=== PATIENT | male | born 1965 | race Caucasian/White ===

== ENCOUNTER 2018-02-14 08:45 | Day surgery (SDC) | payer BC ==
[2018-02-12 08:38] VITALS: BMI 28.8
--- NOTE | 2018-02-14 08:35 | P.GSHP ---
History of Present Illness H&P Date: 02/14/18 CHIEF COMPLAINT: Colon screen HISTORY OF PRESENT ILLNESS: The patient is a 52-year-old male who presents for colon screen. Lower endoscopy was offered for further evaluation and management. PAST MEDICAL HISTORY: Please see list. PAST SURGICAL HISTORY: Please see list. MEDICATIONS: Please see list. ALLERGIES: Please see list. SOCIAL HISTORY: No illicit drug use FAMILY HISTORY: No reports of Crohn disease or ulcerative colitis. REVIEW OF ORGAN SYSTEMS: CONSTITUTIONAL: No reports of fevers or chills. PHYSICAL EXAM: VITAL SIGNS: Stable GENERAL: Well-developed pleasant in no acute distress. HEENT: No scleral icterus. Extraocular movements grossly intact. Moist buccal mucosa. NECK: Supple without lymphadenopathy. CHEST: Unlabored respirations. Equal bilateral excursions. CARDIOVASCULAR: Regular rate and rhythm. Distal 2+ pulses. ABDOMEN: Soft, nontender, nondistended. MUSCULOSKELETAL: No clubbing, cyanosis, or edema. ASSESSMENT: 1. Colon screen. PLAN: 1. Recommend proceeding with a lower endoscopy Past Medical History Past Medical History: No Reported History History of Any Multi-Drug Resistant Organisms: None Reported Additional Past Surgical History / Comment(s): Cyst removed from throat at age 12. Cyst removed from lower extrem. Past Anesthesia/Blood Transfusion Reactions: No Reported Reaction Smoking Status: Never smoker - Past Family History Mother Family Medical History: Cancer Additional Family Medical History / Comment(s): Breast, colon Medications and Allergies Home Medications Medication Instructions Recorded Confirmed Type Glucosam/Yaniv-Msm1/C/Jose/Bosw 1 each PO DAILY 02/12/18 02/12/18 History [Glucosamine-Chondroitin Tablet] Multivitamin [Men's Multi-Vitamin] 1 each PO DAILY 02/12/18 02/12/18 History [place]-3 Fatty Acids/Fish Oil [Fish 1 each PO DAILY 02/12/18 02/12/18 History Oil 1,000 mg Softgel] Allergies Allergy/AdvReac Type Severity Reaction Status Date / Time Penicillins Allergy Anaphylaxis Verified 02/12/18 08:26
[~2018-02-14 08:45] MED LIST: LACTATED RINGERS 1,000 ML IV SCH
[2018-02-14 10:42] VITALS: RESP 16; TEMP 96.8
[2018-02-14] MEDS ORDERED: LIDOCAINE 1% INJ 10MG/ML (20 ML MDV) ONE (11:07)
[2018-02-14] MEDS ORDERED: PROPOFOL 10 MG/ML 20 ML VIAL IV ONE (11:07)
--- NOTE | 2018-02-14 11:38 | P.PCN ---
Date of Procedure: 02/14/18 Description of Procedure: PREOPERATIVE DIAGNOSIS: Colonoscopy screening, first Family history colon cancer, mother POSTOPERATIVE DIAGNOSIS: Colonoscopy screening, first Family history colon cancer, mother Rectal adenoma Proximal transverse colon polyp OPERATION: Colonoscopy to the ileocecal valve and appendiceal orifice. Colonoscopy with snare polypectomy Colonoscopy with cold forceps biopsy. SURGEON: Cristina Ortiz MD. ANESTHESIA: MAC. INDICATIONS: The patient is a 52-year-old female who presents for colonoscopy screening. This is his first colonoscopy. Benefits and risks were described and informed consent was obtained. DESCRIPTION OF PROCEDURE: The patient had undergone Gatorade, MiraLAX and Dulcolax prep. He had been brought into the operating room and laid in the left lateral decubitus position. After adequate intravenous sedation, the rectum was examined with 2 % lidocaine jelly. No external hemorrhoids were encountered. The prostate was smooth and without abnormalities. The rectal tone was within normal limits. No lesions were palpated in the rectal vault. An Olympus colonoscope was advanced until the ileocecal valve and appendiceal orifice were clearly viewed. The prep was fair with visualization of the mucosal folds. The scope was removed with visualization of each mucosal fold. No scattered diverticulosis was encountered. A 3 mm hyperplastic polyp was cold forceps biopsy along the proximal transverse colon. A rectal adenoma of 4 mm was snare polypectomy at 10 cm from the anal verge No evidence of focal colitis was found. Retroflexion of the scope demonstrated no internal hemorrhoids. The colon was desufflated. The patient had tolerated the procedure well. Withdrawal time was over 6 minutes. FINDINGS: No internal hemorrhoids No external hemorrhoids No arteriovenous malformations. No scattered diverticulosis was encountered. Removal of 2 polyps: - Snare polypectomy 10 cm from the anal verge, 5 mm tubulovillous adenoma polyp , rectum - Cold forceps biopsy at proximal transverse colon, 3 mm polyp No focal colitis. RECOMMENDATIONS: Repeat colonoscopy in 3 years, 2020 Plan - Discharge Summary New Discharge Prescriptions: No Action [place]-3 Fatty Acids/Fish Oil [Fish Oil 1,000 mg Softgel] 1 each PO DAILY Multivitamin [Men's Multi-Vitamin] 1 each PO DAILY Glucosam/Yaniv-Msm1/C/Jose/Bosw [Glucosamine-Chondroitin Tablet] 1 each PO DAILY Discharge Medication List Glucosam/Yaniv-Msm1/C/Jose/Bosw [Glucosamine-Chondroitin Tablet] 1 each PO DAILY 02/12/18 [History] Multivitamin [Men's Multi-Vitamin] 1 each PO DAILY 02/12/18 [History] [place]-3 Fatty Acids/Fish Oil [Fish Oil 1,000 mg Softgel] 1 each PO DAILY [History]
[2018-02-14 11:54] VITALS: BP 117/74; PULSE 54
== END 2018-02-14 12:13 | disposition home or self-care (01) ==
LOC: ORWHC2ENDO 08:45
PROVIDERS: ATTEND Surgery Plastic and Reconstructive Surgery
DX: Z12.11 Encounter for screening for malignant neoplasm of colon (principal); Z80.0 Family history of malignant neoplasm of digestive organs; D12.3 Benign neoplasm of transverse colon; K62.1 Rectal polyp; Z88.0 Allergy status to penicillin
CPT/HCPCS: 88305; 45380; 45385; J2001; J2704

== ENCOUNTER 2021-02-03 07:46 | Day surgery (SDC) | payer BC ==
[2021-01-29 10:56] VITALS: BMI 29.5
[~2021-02-03 07:46] MED LIST changes: +LIDOCAINE 1% (10MG/ML) FOR IV START INTRADERMA PRN
[2021-02-03 08:16] VITALS: RESP 16; TEMP 97.3
[2021-02-03] MEDS ORDERED: LIDOCAINE 1% INJ 10MG/ML (20 ML MDV) ONE (08:26)
[2021-02-03] MEDS ORDERED: PROPOFOL 10 MG/ML 20 ML VIAL IV ONE (08:26)
--- NOTE | 2021-02-03 08:27 | P.GSHP ---
History of Present Illness H&P Date: 02/03/21 CHIEF COMPLAINT: Colon screen HISTORY OF PRESENT ILLNESS: The patient is a 55-year-old male who presents for colon screen. Lower endoscopy was offered for further evaluation and management. PAST MEDICAL HISTORY: Please see list. PAST SURGICAL HISTORY: Please see list. MEDICATIONS: Please see list. ALLERGIES: Please see list. SOCIAL HISTORY: No illicit drug use FAMILY HISTORY: No reports of Crohn disease or ulcerative colitis. REVIEW OF ORGAN SYSTEMS: CONSTITUTIONAL: No reports of fevers or chills. PHYSICAL EXAM: VITAL SIGNS: Stable GENERAL: Well-developed pleasant in no acute distress. HEENT: No scleral icterus. Extraocular movements grossly intact. Moist buccal mucosa. NECK: Supple without lymphadenopathy. CHEST: Unlabored respirations. Equal bilateral excursions. CARDIOVASCULAR: Regular rate and rhythm. Distal 2+ pulses. ABDOMEN: Soft, nontender, nondistended. MUSCULOSKELETAL: No clubbing, cyanosis, or edema. ASSESSMENT: 1. Colon screen. PLAN: 1. Recommend proceeding with a lower endoscopy Past Medical History Past Medical History: No Reported History Additional Past Medical History / Comment(s): hx colon polyps History of Any Multi-Drug Resistant Organisms: None Reported Additional Past Surgical History / Comment(s): Cyst removed from throat at age 12. Cyst removed from lower extrem. Past Anesthesia/Blood Transfusion Reactions: No Reported Reaction Smoking Status: Never smoker - Past Family History Mother Family Medical History: Cancer Additional Family Medical History / Comment(s): Breast, colon Medications and Allergies Home Medications Medication Instructions Recorded Confirmed Type Glucosam/Yaniv-Msm1/C/Jose/Bosw 1 each PO DAILY 02/12/18 01/29/21 History [Glucosamine-Chondroitin Tablet] Multivitamin [Men's Multi-Vitamin] 1 each PO DAILY 02/12/18 01/29/21 History [place]-3 Fatty Acids/Fish Oil [Fish 1 each PO DAILY 02/12/18 01/29/21 History Oil 1,000 mg Softgel] Allergies Allergy/AdvReac Type Severity Reaction Status Date / Time Penicillins Allergy Anaphylaxis Verified 02/03/21 08:07 Surgical - Exam Vital Signs Temp Pulse Resp BP Pulse Ox 97.3 F L 79 16 133/72 95 02/03/21 08:15 02/03/21 08:15 02/03/21 08:15 02/03/21 08:15 02/03/21 08:15
--- NOTE | 2021-02-03 08:46 | P.PCN ---
Date of Procedure: 02/03/21 Description of Procedure: PREOPERATIVE DIAGNOSIS: Personal history of colon polyps Colonoscopy screening POSTOPERATIVE DIAGNOSIS: Personal history of colon polyps Colonoscopy screening Tubular adenoma transverse colon OPERATION: Colonoscopy to the ileocecal valve and appendiceal orifice, cecum Colonoscopy with hot snare polypectomy SURGEON: Cristina Ortiz MD. ANESTHESIA: MAC. INDICATIONS: The patient is an 55-year-old male who present personal history of colon polyps. Last colonoscopy 3 years. Benefits and risks were described and informed consent was obtained. DESCRIPTION OF PROCEDURE: The patient had undergone Sutab prep. The patient had been brought into the operating room and laid in the left lateral decubitus position. After adequate intravenous sedation, the rectum was examined with 2% lidocaine jelly. The prostate was unremarkable. External hemorrhoids were encountered. The rectal tone was within normal limits. No lesions were palpated in the rectal vault. An Olympus colonoscope was advanced until the cecum, ileocecal valve and appendiceal orifice were clearly viewed. The prep was good. No sigmoid diverticulosis was encountered. Colonic polyps were found and removed. No evidence of focal colitis was found. Retroflexion of the scope demonstrated grade 1 internal hemorrhoids without active bleeding or inflammation. The colon was desufflated. The patient had tolerated the procedure well. Withdrawal time was over 6 minutes. FINDINGS: Aronchick preparation quality scale 2 (1-5) Internal hemorrhoids, grade 1 External hemorrhoids, grade 4. No arteriovenous malformations. No sigmoid diverticulosis Removal of 1 polyp: - Snare polypectomy proximal transverse colon, 6 mm tubulovillous adenoma polyp. No focal colitis. RECOMMENDATIONS: Repeat colonoscopy 3 years, 2023 Plan - Discharge Summary Discharge Rx Participant: No New Discharge Prescriptions: Continue RX: [place]-3 Fatty Acids/Fish Oil [Fish Oil 1,000 mg Softgel] 1 each PO DAILY RX: Multivitamin [Men's Multi-Vitamin] 1 each PO DAILY RX: Glucosam/Yaniv-Msm1/C/Jose/Bosw [Glucosamine-Chondroitin Tablet] 1 each PO DAILY Discharge Medication List RX: Glucosam/Yaniv-Msm1/C/Jose/Bosw [Glucosamine-Chondroitin Tablet] 1 each PO DAILY 02/12/18 [History] RX: Multivitamin [Men's Multi-Vitamin] 1 each PO DAILY 02/12/18 [History] RX: [place]-3 Fatty Acids/Fish Oil [Fish Oil 1,000 mg Softgel] 1 each PO DAILY 02/12/18 [History] Follow up Appointment(s)/Referral(s): Cristina Ortiz MD [STAFF PHYSICIAN] - As Needed Patient Instructions/Handouts: Colorectal Polyps (IP), Colonoscopy (DC) Activity/Diet/Wound Care/Special Instructions: Repeat colonoscopy in 3 years, 2023 Discharge Disposition: HOME SELF-CARE
[2021-02-03 09:02] VITALS: BP 120/78; PULSE 59
== END 2021-02-03 09:38 | disposition home or self-care (01) ==
LOC: ORWHC2ENDO 07:46
PROVIDERS: ATTEND Surgery Plastic and Reconstructive Surgery
DX: Z12.11 Encounter for screening for malignant neoplasm of colon (principal); D12.3 Benign neoplasm of transverse colon; Z86.010 Personal history of colon polyps; K64.3 Fourth degree hemorrhoids; K64.0 First degree hemorrhoids; E66.9 Obesity, unspecified; Z68.30 Body mass index [BMI] 30.0-30.9, adult; Z98.890 Other specified postprocedural states; Z80.0 Family history of malignant neoplasm of digestive organs; Z80.3 Family history of malignant neoplasm of breast; Z88.0 Allergy status to penicillin
CPT/HCPCS: 45385; J2001; J2704; 88305

== ENCOUNTER 2024-02-07 07:55 | Day surgery (SDC) | payer BC ==
[2024-02-05 14:23] VITALS: BMI 29.5
--- NOTE | 2024-02-07 07:36 | P.GSHP ---
History of Present Illness H&P Date: 02/07/24 CHIEF COMPLAINT: Colon screen HISTORY OF PRESENT ILLNESS: The patient is a 58-year-old male who presents for colon screen. Lower endoscopy was offered for further evaluation and management. PAST MEDICAL HISTORY: Please see list. PAST SURGICAL HISTORY: Please see list. MEDICATIONS: Please see list. ALLERGIES: Please see list. SOCIAL HISTORY: No illicit drug use FAMILY HISTORY: No reports of Crohn disease or ulcerative colitis. REVIEW OF ORGAN SYSTEMS: CONSTITUTIONAL: No reports of fevers or chills. PHYSICAL EXAM: VITAL SIGNS: Stable GENERAL: Well-developed pleasant in no acute distress. HEENT: No scleral icterus. Extraocular movements grossly intact. Moist buccal mucosa. NECK: Supple without lymphadenopathy. CHEST: Unlabored respirations. Equal bilateral excursions. CARDIOVASCULAR: Regular rate and rhythm. Distal 2+ pulses. ABDOMEN: Soft, nontender, nondistended. MUSCULOSKELETAL: No clubbing, cyanosis, or edema. ASSESSMENT: 1. Colon screen. PLAN: 1. Recommend proceeding with a lower endoscopy Past Medical History Past Medical History: No Reported History Additional Past Medical History / Comment(s): hx colon polyps colonoscopy History of Any Multi-Drug Resistant Organisms: None Reported Additional Past Surgical History / Comment(s): Cyst removed from throat at age 12. Cyst removed from lower extrem. Past Anesthesia/Blood Transfusion Reactions: No Reported Reaction Additional Past Anesthesia/Blood Transfusion Reaction / Comment(s): no blood transfusion Smoking Status: Never smoker - Past Family History Mother Family Medical History: Cancer Additional Family Medical History / Comment(s): Breast, colon Medications and Allergies Home Medications Medication Instructions Recorded Confirmed Type Glucosam/Yaniv-Msm1/C/Jose/Bosw 1 each PO DAILY 02/12/18 02/05/24 History [Glucosamine-Chondroitin Tablet] Multivitamin [Men's Multi-Vitamin] 1 each PO DAILY 02/12/18 02/05/24 History [place]-3 Fatty Acids/Fish Oil [Fish 1 each PO DAILY 02/12/18 02/05/24 History Oil 1,000 mg Softgel] Allergies Allergy/AdvReac Type Severity Reaction Status Date / Time Penicillins Allergy Anaphylaxis Verified 02/05/24 14:18
[~2024-02-07 07:55] MED LIST changes: -LIDOCAINE 1% (10MG/ML) FOR IV START INTRADERMA PRN
[2024-02-07] MEDS: IV FLUID CONTINUATION 1,000 ML IV ONE (08:09)
[2024-02-07 08:12] VITALS: RESP 16; TEMP 974
[2024-02-07] MEDS ORDERED: PROPOFOL 10 MG/ML 20 ML VIAL IV ONE (09:06)
--- NOTE | 2024-02-07 09:35 | P.PCN ---
Date of Procedure: 02/07/24 Description of Procedure: PREOPERATIVE DIAGNOSIS: Family history of colon cancer Personal history of colon polyps Colonoscopy screening. POSTOPERATIVE DIAGNOSIS: Ascending colon adenoma Diverticulosis, scattered Internal and external grade 2 hemorrhoids OPERATION: Colonoscopy to the ascending colon SURGEON: Cristina Ortiz MD. ANESTHESIA: MAC. INDICATIONS: The patient is a 58-year-old male who presents for colonoscopy screening. Last colonoscopy 5 years. Benefits and risks were described and informed consent was obtained. DESCRIPTION OF PROCEDURE: The patient had undergone GoLytely prep. The patient had been brought into the operating room and laid in the left lateral decubitus position. After adequate intravenous sedation, the rectum was examined with 2% lidocaine jelly. External hemorrhoids were encountered. Prostate was unremarkable. The rectal tone was within normal limits. No lesions were palpated in the rectal vault. An Olympus colonoscope was advanced through tortuous sigmoid colon requiring abdominal wall pressure. Despite multiple maneuvers scope passed to the ascending colon without intubation of the cecum. Questionable growth of the ileocecal valve/base of the cecum cannot be ascertained. The prep was fair. Scattered diverticulosis was encountered. No evidence of focal colitis was found. Retroflexion of the scope demonstrated grade 2 internal hemorrhoids without active bleeding or inflammation. The colon was desufflated. The patient had tolerated the procedure well. Withdrawal time was over 6 minutes. FINDINGS: Aronchick preparation quality scale 2+ (1-5) Internal hemorrhoids, grade 2 External prolapsed hemorrhoids, grade 2 No arteriovenous malformations. Ascending colon polyp, 2 mm unable to retrieve Questionable growth ileocecal valve/base of the cecum unable to ascertain due to redundancy of sigmoid colon Highly redundant sigmoid colon requiring abdominal wall pressure No focal colitis. RECOMMENDATIONS: Recommend barium enema to capture cecum Repeat colonoscopy in 2 years, 2025, for polypectomy Plan - Discharge Summary Discharge Rx Participant: No New Discharge Prescriptions: Continue [place]-3 Fatty Acids/Fish Oil [Fish Oil 1,000 mg Softgel] 1 each PO DAILY Multivitamin [Men's Multi-Vitamin] 1 each PO DAILY Glucosam/Yaniv-Msm1/C/Jose/Bosw [Glucosamine-Chondroitin Tablet] 1 each PO DAILY Discharge Medication List Glucosam/Yaniv-Msm1/C/Jose/Bosw [Glucosamine-Chondroitin Tablet] 1 each PO DAILY 02/12/18 [History] Multivitamin [Men's Multi-Vitamin] 1 each PO DAILY 02/12/18 [History] [place]-3 Fatty Acids/Fish Oil [Fish Oil 1,000 mg Softgel] 1 each PO DAILY 02/12/18 [History] Follow up Appointment(s)/Referral(s): Cristina Ortiz MD [STAFF PHYSICIAN] - 03/05/24 4:00 pm Patient Instructions/Handouts: Colorectal Polyps (GEN), Diverticulosis Diet (GEN), Diverticulosis (GEN), Barium Enema (DC) Activity/Diet/Wound Care/Special Instructions: Require barium enema due to extremely long colon. Will need repeat colonoscopy in 2 years, 2025 Discharge Disposition: HOME SELF-CARE
[2024-02-07 09:54] VITALS: BP 113/68; PULSE 61
--- NOTE | 2024-02-07 12:04 | FL ---
EXAMINATION TYPE: FL barium enema DATE OF EXAM: 02/07/2024 11:38 AM CLINICAL INDICATION:Male, 58 years old with history of Incomplete scope, poss lesion cecum; COMPARISON: none TECHNIQUE: The procedure was explained and patient history elicited. All patient questions were answ ered prior to beginning. Multiple spot fluoroscopic images of the colon were obtained after the recta l administration of liquid barium as the contrast agent. Multiple postprocedural overhead images, w ere obtained and reviewed. Fluoroscopic time:1 min 42 sec min Fluoroscopic images:0 Radiographs taken: 25 DAP: not recorded [id number] FINDINGS: The preforming machine operator abdominal radiograph demonstrates a normal bowel gas pattern without dilated loo ps of small or large bowel. There is no evidence for organomegaly or pneumoperitoneum. No abnormal calcifications. The visualized osseous structures are intact. The colon demonstrates normal course and contour without evidence of focal stricture, internal fillin g defects, or abnormal outpouching. Views of the cecum with manual compression are unremarkable. Postevacuation images are unremarkable. IMPRESSION: No evidence for abnormal stricture or mass lesion within the sigmoid colon. No prior imaging availabl e for comparison. [facility], , 02/07/2024 12:01 PM
== END 2024-02-07 10:28 | disposition home or self-care (01) ==
LOC: ORWHC2ENDO 07:55
PROVIDERS: ATTEND Surgery Plastic and Reconstructive Surgery
DX: Z12.11 Encounter for screening for malignant neoplasm of colon (principal); K57.30 Diverticulosis of large intestine without perforation or abscess without bleeding; K64.1 Second degree hemorrhoids; K64.4 Residual hemorrhoidal skin tags; K63.5 Polyp of colon; K56.2 Volvulus; Z86.0100 Personal history of colon polyps, unspecified; Z80.0 Family history of malignant neoplasm of digestive organs; Z88.0 Allergy status to penicillin; Z80.3 Family history of malignant neoplasm of breast
CPT/HCPCS: 74270; J2704; G0105; 45378